=== PATIENT | male | born 1985 | race Two or more races ===

== ENCOUNTER 2020-09-29 04:30 | Emergency (ER) | payer SELFPAY ==
[~2020-09-29] VITALS: Ht 175.3 cm; Wt 91.0 kg
[2020-09-29 04:39] VITALS: BP 153/72
[2020-09-29] MEDS ORDERED: LIDOCAINE HCL/PF 1% 10 MG/ML 5ML VIAL IJ ONE (06:00)
== END 2020-09-29 06:34 | disposition home or self-care (01) ==
LOC: EDBD → ER 04:30
DX: S01.01XA Laceration without foreign body of scalp, initial encounter (principal); F10.129 Alcohol abuse with intoxication, unspecified; Y04.0XXA Assault by unarmed brawl or fight, initial encounter; Y93.89 Activity, other specified; Y92.89 Other specified places as the place of occurrence of the external cause; Y99.8 Other external cause status; Y90.9 Presence of alcohol in blood, level not specified
CPT/HCPCS: 12002; 99282; A4217; J3490; Z7610

== ENCOUNTER 2020-10-09 06:38 | Emergency (ER) | payer SELFPAY ==
[~2020-10-09] VITALS: Ht 172.7 cm; Wt 64.0 kg
[2020-10-09 08:53] VITALS: BP 124/61
== END 2020-10-09 08:28 | disposition home or self-care (01) ==
LOC: ER 06:38 → EDBD 06:38 → ER 08:28
DX: Z48.02 Encounter for removal of sutures (principal)
CPT/HCPCS: 99281; Z7610